=== PATIENT | male | born 1945 | race Caucasian/White ===

== ENCOUNTER 2017-10-08 13:18 | Emergency (ER) | payer OTHER ==
[~2017-10-08] VITALS: Ht 172.7 cm; Wt 88.5 kg
[2017-10-08] MEDS ORDERED: NORCO 5-325 TA1 EACH PO (14:56)
[2017-10-08 15:41] VITALS: BP 148/72
== END 2017-10-08 15:30 | disposition home or self-care (01) ==
LOC: ER 13:18
DX: S46.812A Strain of other muscles, fascia and tendons at shoulder and upper arm level, left arm, initial encounter (principal); S00.83XA Contusion of other part of head, initial encounter; Z95.811 Presence of heart assist device; W18.30XA Fall on same level, unspecified, initial encounter; Y93.89 Activity, other specified; Y92.89 Other specified places as the place of occurrence of the external cause; Y99.8 Other external cause status